=== PATIENT | female | born 1990 | race Caucasian/White ===

== ENCOUNTER 2023-01-24 13:26 | Emergency (ER) | payer OTHER ==
[~2023-01-24] VITALS: Ht 177.8 cm; Wt 93.9 kg
[2023-01-24] MEDS ORDERED: SINGULAIR 5MG5 MG PO (13:37)
[2023-01-24] MEDS ORDERED: TUSSIN DM SYRU118 ML PO (16:21)
[2023-01-24] MEDS ORDERED: ZITHROMAX TRI-500 MG PO (16:21)
== END 2023-01-24 17:05 | disposition home or self-care (01) ==
LOC: ER 13:26
DX: B34.9 Viral infection, unspecified (principal); R05.9 Cough, unspecified; Z20.822 Contact with and (suspected) exposure to COVID-19

== ENCOUNTER 2023-05-11 08:52 | Emergency (ER) | payer OTHER ==
[~2023-05-11] VITALS: Ht 177.8 cm; Wt 98.0 kg
[~2023-05-11 08:52] MED LIST: SINGULAIR 5MG5 MG PO; TUSSIN DM SYRU118 ML PO; ZITHROMAX TRI-500 MG PO
== END 2023-05-11 09:47 | disposition home or self-care (01) ==
LOC: ER 08:52
DX: H01.009 Unspecified blepharitis unspecified eye, unspecified eyelid (principal)

== ENCOUNTER 2023-06-21 | Outpatient (CLI) | payer OTHER | END 2023-06-21 00:15 | disposition home or self-care (01) | LOC: PPH VACUNA | PROVIDERS: ATTEND Emergency Medicine Pediatric Emergency Medicine | DX: Z23 Encounter for immunization (principal) ==

== ENCOUNTER 2023-10-28 11:01 | Emergency (ER) | payer OTHER ==
[~2023-10-28] VITALS: Ht 177.8 cm; Wt 94.3 kg
[2023-10-28 15:01] LABS: HEMATOCRIT 35.7 % (36.0-45.00); HEMOGLOBIN 12.2 g/dL (12.0-15.00); MEAN CELL VOLUME 81.2 fL (80.00-100.00); MEAN CORPUSCULAR HEMOGLOBIN 27.9 pg (27.00-32.0); MEAN CORPUSCULAR HGB CONC 34.3 g/dl (32.0-36.0); PLATELET COUNT 229 K/uL (150-450); RED BLOOD COUNT 4.39 M/uL (4.00-6.00); RED CELL DISTRIBUTION WIDTH 13.5 % (11.5-14.5)
[2023-10-28 15:22] LABS: CALCIUM 9.3 mg/dL (8.5-10.1); CREATININE SERUM 0.66 mg/dL (0.55-1.02); GFR 105.15; POTASSIUM 3.79 mEq/L (3.5-5.1)
== END 2023-10-28 16:33 | disposition home or self-care (01) ==
LOC: ER 11:01
PROVIDERS: General Practice
DX: J45.909 Unspecified asthma, uncomplicated (principal); J32.8 Other chronic sinusitis; Z20.822 Contact with and (suspected) exposure to COVID-19

== ENCOUNTER 2024-02-06 06:36 | Outpatient (CLI) | payer OTHER ==
[2024-02-06 08:01] LABS: HEMATOCRIT 35.9 % (36.0-45.00); HEMOGLOBIN 12.5 g/dL (12.0-15.00); MEAN CELL VOLUME 81.3 fL (80.00-100.00); MEAN CORPUSCULAR HEMOGLOBIN 28.3 pg (27.00-32.0); MEAN CORPUSCULAR HGB CONC 34.8 g/dl (32.0-36.0); PLATELET COUNT 177 K/uL (150-450); RED BLOOD COUNT 4.41 M/uL (4.00-6.00); RED CELL DISTRIBUTION WIDTH 13.4 % (11.5-14.5)
[2024-02-06 08:44] LABS: ALBUMIN 3.8 gm/dL (3.4-5.0); BILIRUBIN TOTAL 0.69 mg/dL (0.3-1.2); CALCIUM 9.3 mg/dL (8.5-10.1); CHOL HDL RATIO 3.2 (0-5.0); CREATININE SERUM 0.77 mg/dL (0.55-1.02); GFR 88.02; GLOBULINA 3.2 G/DL (2.4-3.5); POTASSIUM 4.35 mEq/L (3.5-5.1); TSH 1.63 uIU/mL (0.358-3.74)
== END 2024-02-06 06:37 | disposition home or self-care (01) ==
LOC: LAB 06:36
PROVIDERS: ATTEND General Practice
DX: Z13.89 Encounter for screening for other disorder (principal); Z13.220 Encounter for screening for lipoid disorders; Z13.0 Encounter for screening for diseases of the blood and blood-forming organs and certain disorders involving the immune mechanism; Z11.3 Encounter for screening for infections with a predominantly sexual mode of transmission; Z11.4 Encounter for screening for human immunodeficiency virus [HIV]; Z11.59 Encounter for screening for other viral diseases

== ENCOUNTER 2024-02-07 14:52 | Outpatient (CLI) | payer OTHER | END 2024-02-07 14:55 | disposition home or self-care (01) | LOC: RAD 14:52 | PROVIDERS: ATTEND General Practice | DX: Z00.8 Encounter for other general examination (principal); Z13.6 Encounter for screening for cardiovascular disorders; E66.3 Overweight; D50.8 Other iron deficiency anemias; R00.2 Palpitations ==

== ENCOUNTER 2024-05-01 10:11 | Emergency (ER) | payer OTHER ==
[~2024-05-01] VITALS: Ht 177.8 cm; Wt 90.7 kg
[2024-05-01] MEDS ORDERED: ELVITEG/COB/EMTRI/TENOFO DISOP 1 UDTAB TABLET PO ONE (10:45)
[2024-05-01 11:19] LABS: HEMATOCRIT 34.1 % (36.0-45.00); HEMOGLOBIN 11.8 g/dL (12.0-15.00); MEAN CELL VOLUME 83.4 fL (80.00-100.00); MEAN CORPUSCULAR HGB CONC 34.7 g/dl (32.0-36.0); PLATELET COUNT 186 K/uL (150-450); RED BLOOD COUNT 4.09 M/uL (4.00-6.00); RED CELL DISTRIBUTION WIDTH 13.1 % (11.5-14.5)
== END 2024-05-01 11:20 | disposition home or self-care (01) ==
LOC: ER 10:11
PROVIDERS: General Practice
DX: R53.81 Other malaise (principal); Z77.21 Contact with and (suspected) exposure to potentially hazardous body fluids

== ENCOUNTER 2024-06-30 09:02 | Outpatient (CLI) | payer OTHER | END 2024-06-30 09:12 | disposition home or self-care (01) | LOC: SONOGRAMA 09:02 | DX: N93.9 Abnormal uterine and vaginal bleeding, unspecified (principal); R10.2 Pelvic and perineal pain ==

== ENCOUNTER 2024-08-22 03:00 | Outpatient (CLI) | payer OTHER | END 2024-08-22 03:15 | disposition home or self-care (01) | LOC: PPH VACUNA 03:00 | PROVIDERS: ATTEND Emergency Medicine Pediatric Emergency Medicine | DX: Z23 Encounter for immunization (principal) ==

== ENCOUNTER → 2025-06-16 06:19 | Outpatient (CLI) | payer OTHER ==
[2025-06-17 09:11] LABS: HEPATITIS A ANTIBODY IGG Positive (Negative); HEPATITIS B SURFACE ANTIBODY Non Reactive (.); HEPATITIS C VIRUS ANTIBODY Non Reactive (Non Reactive)
== END | disposition home or self-care (01) ==
LOC: LAB 06:19
DX: A64 Unspecified sexually transmitted disease (principal); B19.9 Unspecified viral hepatitis without hepatic coma